=== PATIENT | female | born 1945 | race Caucasian/White ===

== ENCOUNTER 2023-03-22 14:15 | Outpatient (AMB) | payer OTHER, SELFPAY ==
[2023-03-22 14:50] VITALS: BMI 35.8
--- NOTE | 2023-03-22 14:50 | A.OFFVIS_ITS ---
Intake VS Expanded 03/22/23 14:50 Height 5 ft Weight 183 lb 3.266 oz BMI 35.8 Intake Visit Reasons: Obesity HPI Nutrition Presentation Details Pt presents for MNT for obesity. Pt was referred by Grady Atkins NP. Pt has COPD, Asthma dx Pt reports typically having the following meal pattern 11 Coffee , cheerios or eggs with crackers or hot cereal with milk whole milk 2pm : piece of cake or juice 5-6 pm : beans or rice with salad. Reports not including meats or poultry or fish 8-9 pm : piece of cake or crackers Physical activity: daily life activities Exercise: daily life activities ETOH: denies IZU-Slvraib-Mz.Jeor Equation Height 5 ft Weight 183 lb Resting Metabolic Rate 1251.74 Calculated Activity Level Sedentary Calories Needed to Maintain Weight 1502.09 Diagnosis Nutrition problem #1 food nutri know defi As related to (etiology) #1 diagnosis As evidenced by (sign/symptom) #1 high BMI and knowledge deficit of diet Most Recent Diabetes Results: No Data to Display [facility] Medical History (Updated 03/29/23 @ 14:[address], LDN) Asthma COPD (chronic obstructive pulmonary disease) Assessment & Plan Assessment & Plan (1) Obesity (BMI 30-39.9): Code(s): E66.9 - Obesity, unspecified Plan: used wt: 83 Est kcal needs as per MSJ: 3131-7718 (40% carb, 30% protein/fat) Est fluid needs as per 25-30 ml/d: 2000 Est prot per day as per 1 g/kg bw: 83 Recommend fiber intake : 8-10 g per day and gradually increase to 25-28 g per day for women and 35-38 g for men or as tolerated Recommend sodium intake per day : less than 2000 mg Educated patient on: ( R = reviewed V = verbalizes understanding N/R = needs review N/A = not applicable * Food sources of carbohydrate, adequate serving sizes and its role in various health conditions: R * Differences between complex carbohydrates a simple carbohydrates, role of fiber in diet: NR * Differences between types of fats and role in diet (mono on saturated fat fatty acids, saturated fatty acids, trans fats): R * Food sources of sodium in salt and healthy modifications for heart health in kidney health: NR * Vitamins and minerals: NR * Healthy plate method concept: R * Physical activity: Benefits a precaution: NR Patient Instructions: Reduce on fat intake by having a fruit in place of pastries once a day Reduce fried foods to once a week Coding Level of Care Code Nutr Indiv Intake (55232) Diagnoses Obesity (BMI 30-39.9) E66.9 Time Spent (min) 30
[2023-03-29 14:29] VITALS: BMI 35.7
== END 2023-03-22 15:17 | disposition home or self-care (01) ==
PROVIDERS: PCP Registered Nurse; Visit Provider Dietitian, Registered
DX: E66.9 Obesity, unspecified (principal)

== ENCOUNTER → 2023-03-22 14:15 | Outpatient (BNVA) | payer OTHER, SELFPAY | PROVIDERS: PCP Registered Nurse; Visit Provider Dietitian, Registered | DX: E66.9 Obesity, unspecified (principal); Z68.35 Body mass index [BMI] 35.0-35.9, adult | CPT/HCPCS: 97802 ==